=== PATIENT | male | born 1950 | race Two or more races ===

== ENCOUNTER 2025-05-13 18:53 | Emergency (ER) | payer MEDICARE, MEDICAID ==
[~2025-05-13] VITALS: Ht 152.4 cm; Wt 79.0 kg
--- NOTE | 2025-05-13 20:09 | DVH ---
INDICATION: Status post fall injury pain TECHNIQUE: 4 views of the lumbar spine were obtained. COMPARISON: CT abdomen/pelvis 02/23/2025 (report only available) FINDINGS: No acute fracture or compression deformity. Superior endplate compression deformity of L1 with cemen t augmentation, as reported on comparison exam. Normal lordotic curvature without significant listhes is. Xchi-[id number] multilevel degenerative change. 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 Unremarkable abdominal con tents. IMPRESSION: 1. No acute finding of the lumbar spine.
--- NOTE | 2025-05-13 22:18 | ED.PDOC ---
Back pain HPI HPI Comments 74-YEAR-OLD MALE PRESENTS TO THE ED CHIEF COMPLAINT BILATERAL LOWER BACK PAIN. PATIENT STATES STATUS POST FALL LOST HIS BALANCE TRIPPED LANDED ON HIS BACK COMPLAINING OF BILATERAL LOWER BACK PAIN. HE DENIES ANY NUMBNESS OR WEAKNESS REPORTS NO SADDLE ANESTHESIA, OR LOSS OF BOWEL BLADDER CONTROL. Chief Complaint: Back Pain Time Seen by MD: 19:02 Reviewed Notes: Nurses Notes, Medications, Allergies Allergies: Coded Allergies: NO KNOWN ALLERGIES (Unverified , 05/13/25) Mode of Arrival: Ambulatory Past Medical History PAST MEDICAL HISTORY: Denies Surgical History: Denies all surgeries Family History Family History: Reviewed,noncontributory to illness Social History Smoker: Non-Smoker Alcohol: Denies ETOH Use Drugs: Denies Drug Use Constitutional: denies: chills, diaphoresis, fatigue, fever, malaise, sweats, weakness, others EENTM: denies: blurred vision, double vision, ear bleeding, ear discharge, ear drainage, ear pain, ear ringing, eye pain, eye redness, hearing loss, mouth pain, mouth swelling, nasal discharge, nose bleeding, nose congestion, nose pain, photophobia, tearing, throat pain, throat swelling, voice changes, others Respiratory: denies: cough, hemoptysis, orthopnea, SOB at rest, shortness of breath, SOB with excertion, stridor, wheezing, others Cardiovascular: denies: chest pain, dizzy spells, diaphoresis, Dyspnea on exertion, edema, irregular heart beat, left arm pain, lightheadedness, palpitations, PND, syncope, others Gastrointestinal: denies: abdomen distended, abdominal pain, blood streaked bowels, constipated, diarrhea, dysphagia, difficulty swallowing, hematemesis, melena, nausea, poor appetite, poor fluid intake, rectal bleeding, rectal pain, vomiting, others Genitourinary: denies: burning, dysuria, flank pain, frequency, hematuria, incontinence, penile discharge, penile sore, pain, testicle pain, testicle swelling, urgency, others Neurological: denies: dizziness, fainting, headache, left sided numbness, left sided weakness, numbness, paresthesia, pre-existing deficit, right sided numbness, right sided weakness, seizure, speech problems, tingling, tremors, weakness, others Musculoskeletal: reports: back pain; denies: gout, joint pain, joint swelling, muscle pain, muscle stiffness, neck pain, others Integumetry: denies: bruises, change in color, change in hair/nails, dryness, laceration, lesions, lumps, rash, wounds, others Allergic/Immunocompromised: denies: Difficulty Healing, Frequent Infections, Hives, Itching, others Hematologic/Lymphatic: denies: anemia, blood clots, easy bleeding, easy bruising, swollen glands, others Endocrine: denies: excessive hunger, excessive sweating, excessive thirst, excessive urination, flushing, intolerance to cold, intolerance to heat, unexplained weight gain, unexplained weight loss, others Psychiatric: denies: anxiety, bipolar disorder, depression, hopeless, panic disorder, schizophrenia, sleepless, suicidal, others Physical Exam General Appearance: No Apparent Distress, Normal HEENT: Pharynx Normal Neck: Full Range of Motion, Non-Tender Respiratory: Lungs Clear, No Respiratory Distress, Normal Breath Sounds Cardiovascular: No Edema, No JVD, No Murmur, No Gallop, Normal Peripheral Pu lses, Regular Rate/Rhythm Breast Exam: Deferred Gastrointestinal: No Organomegaly, Non Tender, No Pulsatile Mass, Normal Bowel Sounds, Soft Genitalia: Deferred Pelvic: Deferred Rectal: Deferred Extremities: Normal capillary refill, Normal inspection, Normal range of motion, Non-tender, No pedal edema Musculoskeletal : Location: Bilateral (MODERATE TENDERNESS PALPATED OVER BILATERAL LOWER BACK MUSCULATURE. NO TENDERNESS STEP-OFFS OR CRYPT OFFS ALONG T1 THROUGH L5. NEGATIVE STRAIGHT LEG RAISE BILATERAL NO NOTED NUMBNESS OR SADDLE ANESTHESIA STRENGTH SENSORY MOTION INTACT POSITIVE PEDAL PULSES) Apperance: Normal Neurologic: Alert, No Motor Deficits, Normal Affect, Normal Mood, No Sensory Deficits Cerebellar Function: Normal Reflexes: Normal Skin: Dry, Normal Color, Warm Lymphatic: No Adenopathy Was a procedure done? Was a procedure done?: No Back Pain Differential Dx Differential Diagnosis: Fracture, Musculoskeletal Pain X-Ray, Labs, Meds, VS Vital Signs Date Time Temp Pulse Resp B/P (MAP) Pulse Ox O2 Delivery O2 Flow Rate FiO2 05/13/25 18:55 98.0 100 16 141/82 100 98.0 Current Medications Medications (Trade) Dose Ordered Sig/Serenity Route Start Time Stop Time Status Last Admin Ketorolac Tromethamine (Toradol Injection) 30 mg ONCE ONCE IM 05/13/25 22:00 05/13/25 22:01 DC 05/13/25 22:20 Dexamethasone Sodium Phosphate (Decadron Injection) 10 mg ONCE ONCE IM 05/13/25 22:00 05/13/25 22:01 DC 05/13/25 22:21 Acetaminophen/ Hydrocodone Bitart ([place] 5/325MG Tab) 1 tab ONCE ONCE PO 05/13/25 22:00 05/13/25 22:01 DC 05/13/25 22:20 X-Ray, Labs, Meds, VS Comment LUMBAR SPINE X-RAY SHOWS NO ACUTE FRACTURES OSSEOUS LESIONS OR SUBLUXATIONS. PATIENT IS SET UP FOR DISCHARGE HOME HOWEVER, PER PATIENT STATES HE HAS NO WHERE TO GO CURRENTLY AT FACILITY STATES HE DOES NOT FEEL SAFE TO GO BACK THERE. PATIENT STATES HE WANTS TO GO TO [place] WHERE MOST OF HIS FRIENDS LIVE WHERE HE FEELS SAFE. CURRENTLY HAS NO MONEY NO SOURCE OF FUNDS. DENIES ANY PSYCH HISTORY DOES STATE CHRONIC HISTORY OF LOW BACK PAIN. PATIENT REQUESTING OTHER SALES SUPPORT WORKER CONSULT. REFERRAL PLACED FOR CONSULT WE WILL OBTAIN UDS, UA AND CBC CMP. Time of 1ST Reevaluation: 23:13 Reevaluation 1ST: Unchanged Time of 2ND Reevaluation: 23:13 Reevaluation 2ND: Unchanged Patient Education/Counseling: Diagnosis, Treatment, Prognosis, Need For Follow Up Family Education/Counseling: No Family Present SEPSIS Sepsis Screen Date sepsis recognized/suspect: May 13, 2025 Time Sepsis recognized/suspect: 1856 Recent Procedure: No On Antibiotic Therapy: No Respiratory Rate >20: No Heart Rate >90: Yes Temp<36 C (96.8 F) or >38.3 C: No SBP <90 or MAP <65 mmHG: No New Acute Mental Status Change: No Is the patient on CPAP, BIPAP,: No Physician Orders Lumbar Spine 3 View (05/13/25 19:05) * Business Lawyer Consult (05/13/25 ) Vital Signs Date Time Temp Pulse Resp B/P (MAP) Pulse Ox O2 Delivery O2 Flow Rate FiO2 05/13/25 18:55 98.0 100 16 141/82 100 98.0 Medications Medications Dose Ordered Sig/Serenity Route Start Time Stop Time Status Last Admin Dose Admin Acetaminophen/ Hydrocodone Bitart 1 tab ONCE ONCE PO 05/13/25 22:00 05/13/25 22:01 DC 05/13/25 22:20 Dexamethasone Sodium Phosphate 10 mg ONCE ONCE IM 05/13/25 22:00 05/13/25 22:01 DC 05/13/25 22:21 Ketorolac Tromethamine 30 mg ONCE ONCE IM 05/13/25 22:00 05/13/25 22:01 DC 05/13/25 22:20 Departure 1 Departure Time of Disposition: 22:18 Impression: Primary Impression: Lumbar sprain Qualified Codes: S33.5XXA - Sprain of ligaments of lumbar spine, initial encounter Disposition: HOME / SELF CARE / HOMELESS Condition: Stable Discharged With: Spouse Critical Care Note Critical Care Time?: No Stability Stability form required: JOSEFINA Calderon May 13, 2025 22:18
[2025-05-13] MEDS: HYDROcodone-ACET 5/325MG TAB PO ONE (22:20)
[2025-05-13] MEDS: KETOROLAC TROMETH 60MG/2ML VIAL IM ONE (22:20)
[2025-05-13 23:57] LABS: Hematocrit 42.8 % (41.0-53.0); Hemoglobin 14.5 g/dL (13.5-17.5); Mean Corpuscular Hemoglobin 30.7 pg (28.0-32.0); Mean Corpuscular Volume 90.5 fL (80.0-100.0); Nucleated Red Blood Cells % 0.1 %
[2025-05-14 00:02] LABS: Alanine Aminotransferase 23 U/L (7-40); Alkaline Phosphatase 110 U/L (46-116); Anion Gap 8 (5-15); BUN/Creatinine Ratio 14.0 (10.0-20.0); Blood Urea Nitrogen 13 mg/dL (9-23); Calcium 9.3 mg/dL (8.7-10.4); Carbon Dioxide 26 mmol/L (20-31); Chloride 101 mmol/L (98-107); Potassium 4.0 mmol/L (3.5-5.1); Total Protein 7.2 g/dL (5.7-8.2)
[2025-05-14 00:03] LABS: Albumin 4.3 g/dL (3.2-4.8); Bilirubin, Total 0.8 mg/dL (0.2-1.0)
[2025-05-14 00:13] LABS: Glucose 377 mg/dL (74-106); Sodium 135 mmol/L (136-145)
[2025-05-14 11:40] VITALS: BP 148/96; PULSE 104; RESP 16; TEMP 98.9; O2SAT 97
== END 2025-05-14 11:43 | disposition home or self-care (01) ==
LOC: ER 18:53
DX: S33.5XXA Sprain of ligaments of lumbar spine, initial encounter (principal); W18.39XA Other fall on same level, initial encounter; Y93.89 Activity, other specified; Y92.89 Other specified places as the place of occurrence of the external cause; Y99.8 Other external cause status
CPT/HCPCS: 36415; 72100; 80053; 85025; 96372; 99284; J1100; J1885